=== PATIENT | female | born 1965 | race Caucasian/White ===

== ENCOUNTER 2023-04-15 12:42 | Emergency (ER) | payer MEDICAID ==
[~2023-04-15] VITALS: Ht 132.1 cm; Wt 35.6 kg
[2023-04-15 12:47] VITALS: TEMP 98.1
[2023-04-15 13:13] LABS: URINE HCG NEGATIVE (NEG)
[2023-04-15 13:19] LABS: CLARITY,URINE CLEAR (Clear)
[2023-04-15 13:27] LABS: COLOR,URINE ORANGE (Yellow); UA COLLECTION TYPE CLN CATCH MIDSTREAM
[2023-04-15 13:30] LABS: BACTERIA,URINE 2+ /HPF (Neg); MUCUS STRANDS FEW /LPF (Neg); SQUAMOUS EPITHELIAL CELL,UR MANY /LPF (FEW)
[2023-04-15 13:31] LABS: WBC,URINE 50-100 /HPF (0-4)
[2023-04-15 13:35] LABS: BASOPHILS % (AUTO) 0.5 % (0-1); EOSINOPHILS # (AUTO) 0.2 X10'3 (0-0.9); EOSINOPHILS % (AUTO) 1.8 % (0-6); HEMATOCRIT 42.3 % (35.0-45.0); HEMOGLOBIN 14.3 g/dl (12.0-16.0); LYMPHOCYTES # (AUTO) 1.8 X10'3 (1.1-4.8); LYMPHOCYTES % (AUTO) 20.5 % (21-51); MEAN CORPUSCULAR HGB CONC 33.8 g/dL (33.0-36.5); MEAN CORPUSCULAR VOLUME 94.4 FL (78-98); MEAN PLATELET VOLUME 7.1 FL (7.4-10.4); MONOCYTES % (AUTO) 12.1 % (2-12); NEUTROPHILS # (AUTO) 5.6 X10'3 (1.8-7.7); NEUTROPHILS % (AUTO) 65.1 % (42-75); PLATELET COUNT 395 X10'3 (140-440); RED BLOOD COUNT 4.48 X10'6 (4.20-5.60); RED CELL DISTRIBUTION WIDTH 14.1 % (11.5-14.5); WHITE BLOOD COUNT 8.6 X10'3 (4.5-11.0)
[2023-04-15 13:42] LABS: ALANINE AMINOTRANSFERASE 17 U/L (12-78); ALBUMIN 3.6 G/DL (3.4-5.0); ALBUMIN/GLOBULIN RATIO 0.9 (1.1-1.5); ALKALINE PHOSPHATASE 139 IU/L (46-116); ANION GAP 9 (8-16); ASPARTATE AMINO TRANSFERASE 15 U/L (10-37); BILIRUBIN,TOTAL 0.4 MG/DL (0.1-1.0); BLOOD UREA NITROGEN 5 MG/DL (7-18); BUN/CREATININE RATIO 7.9 (10.0-20.0); CALCIUM 9.9 MG/DL (8.5-10.1); CHLORIDE 93 MMOL/L (99-107); CREATININE 0.63 MG/DL (0.40-0.90); GLUCOSE 116 MG/DL (70-104); LIPASE < 50 U/L (73-393); SODIUM 134 MMOL/L (135-145); TOTAL CARBON DIOXIDE 32.1 MMOL/L (24-32); TOTAL PROTEIN 7.7 G/DL (6.4-8.2); eCRCL 42 ML/MIN; eGFR > 90 ML/MIN
[2023-04-15 16:07] VITALS: BP 153/69; PULSE 109; O2SAT 95
[2023-04-15] MEDS ORDERED: potassium chloride 10mEq ER tablet PO STA (16:49)
[2023-04-15] MEDS ORDERED: CefTRIAXone 1000mg IM Kit (w/lidocaine diluent) IM ONE (16:55)
[2023-04-15] MEDS ORDERED: ketorolac tromethamine 15mg/ml inj. IM ONE (16:55)
[2023-04-15] MEDS ORDERED: CEFD300C3 PO (16:59)
[2023-04-15 17:14] VITALS: RESP 15
[2023-04-15] MEDS ORDERED: CefTRIAXone/D5W-Rocephin 1gm 50 ML IV ONE (17:20)
== END 2023-04-15 18:00 | disposition home or self-care (01) ==
LOC: ER 12:43
DX: N39.0 Urinary tract infection, site not specified (principal); Z88.0 Allergy status to penicillin; Z88.1 Allergy status to other antibiotic agents; Z88.8 Allergy status to other drugs, medicaments and biological substances
CPT/HCPCS: 36415; 80053; 81001; 81025; 83690; 85025; 96365; 96372; 99284; J0696; J1885; J7030

== ENCOUNTER 2024-10-07 11:03 | Inpatient (IN) | payer MEDICAID ==
[~2024-10-07] VITALS: Ht 132.1 cm; Wt 43.0 kg
[2024-10-07] MEDS: levoFLOXACIN-Levaquin 500mg/D5 100 ML IV ONE (12:06)
[2024-10-07 12:09] LABS: BASOPHILS % (AUTO) 0.1 % (0-1); EOSINOPHILS % (AUTO) 0 % (0-6)
[2024-10-07 12:12] LABS: HEMATOCRIT 40.8 % (35.0-45.0); HEMOGLOBIN 13.4 g/dl (12.0-16.0); LYMPHOCYTES % (AUTO) 5.4 % (21-51); MEAN CORPUSCULAR HEMOGLOBIN 31.1 PG (27.0-31.0); MEAN CORPUSCULAR HGB CONC 32.8 g/dL (33.0-36.5); MEAN CORPUSCULAR VOLUME 94.8 FL (78-98); MEAN PLATELET VOLUME 8.1 FL (7.4-10.4); MONOCYTES # (AUTO) 1.3 X10'3 (0-0.9); MONOCYTES % (AUTO) 7.1 % (2-12); NEUTROPHILS # (AUTO) 15.7 X10'3 (1.8-7.7); NEUTROPHILS % (AUTO) 87.4 % (42-75); PLATELET COUNT 342 X10'3 (140-440); RED BLOOD COUNT 4.31 X10'6 (4.20-5.60); RED CELL DISTRIBUTION WIDTH 13.9 % (11.5-14.5)
[2024-10-07 12:52] LABS: ALBUMIN 2.4 G/DL (3.4-5.0); ANION GAP 9 (8-16); BLOOD UREA NITROGEN 8 MG/DL (7-18); BUN/CREATININE RATIO 26.7 (10.0-20.0); CALCIUM 8.6 MG/DL (8.5-10.1); CHLORIDE 88 MMOL/L (99-107); GLUCOSE 129 MG/DL (70-104); MAGNESIUM 2.3 MG/DL (1.5-2.4); PRO BRAIN NATRIURETIC PEPTIDE 534 PG/ML (0-125); SODIUM 131 MMOL/L (135-145); TOTAL CARBON DIOXIDE 33.8 MMOL/L (24-32); eCRCL 85 ML/MIN; eGFR > 90 ML/MIN
[2024-10-07 12:58] LABS: POTASSIUM 3.3 MMOL/L (3.5-5.1)
[2024-10-07] MEDS: vancomycin/NS 1 GM ADD-VANTAGE 250 ML X 1 DOSE IV ONE (13:28)
[2024-10-07] MEDS ORDERED: methylPREDNISolone sod succ 125mg/2ml vial IV ONE (13:35)
[2024-10-07] MEDS: methylPREDNISolone sod succ/PF 40mg inj. IV ONE (13:42)
[2024-10-07] MEDS ORDERED: ALB0.5UD NEB (14:51)
[2024-10-07] MEDS: ipratropium/albuterol 3ml nebule NEB ONE (15:16)
[2024-10-07 15:25] VITALS: PULSE 92; RESP 22; O2SAT 94; O2SAT 97
[2024-10-07] MEDS ORDERED: magnesium hydroxide 30ml (MOM) UD suspension PO PRN (15:55)
[2024-10-07] MEDS ORDERED: magnesium sulf-water 4G/100mL 100 ML IV PRN (15:55)
[2024-10-07] MEDS ORDERED: magnesium sulf-water 2g/50mL 50 ML IV PRN (15:55)
[2024-10-07] MEDS ORDERED: potassium Cl 40MEQ/1/2NS 520ml 520 ML IV PRN (15:55)
[2024-10-07] MEDS ORDERED: morphine 2 MG/ML inj. syringe IV PRN ×2 (15:55)
[2024-10-07] MEDS ORDERED: magnesium Cl slow-release 64mg tablet PO PRN (15:55)
[2024-10-07] MEDS: normal saline 1000ml 1,000 ML IV SCH (16:26)
[2024-10-07] MEDS: methylPREDNISolone sod succ 125mg/2ml vial IV SCH (16:26)
[2024-10-07 18:00] VITALS: BP 149/66; PULSE 105; RESP 14; TEMP 97.1; O2SAT 92
[2024-10-07 18:08] LABS: OSMOLALITY 276 MOSM/K (280-300)
[2024-10-07] MEDS: normal saline 1000ml 1,000 ML IV ONE ×2 (19:35→19:36)
[2024-10-07 20:00] VITALS: RESP 14; O2SAT 92
[2024-10-07] MEDS: K and/or MAG REPLACEMENT MC SCH (20:00)
[2024-10-07] MEDS: docusate sod 100mg capsule PO SCH (20:00)
[2024-10-07] MEDS: heparin, porcine 5000 units/ml vial SQ SCH (20:31)
[2024-10-07] MEDS: potassium Cl 20 mEq SR tablet PO PRN (20:40)
[2024-10-07 22:00] VITALS: BP 147/81; PULSE 89; RESP 19; TEMP 98; O2SAT 98
[2024-10-07] MEDS: mag hydrox/Alum hydrox/simeth 30ml oral suspension PO PRN (23:07)
[2024-10-07] MEDS: ipratropium/albuterol 3ml nebule NEB SCH (23:07)
[2024-10-07 23:31] VITALS: PULSE 103; RESP 18; O2SAT 88
[2024-10-07 23:38] VITALS: PULSE 89; RESP 18
[2024-10-08] VITALS (14 sets, daily range): BP systolic 128–149; BP diastolic 64–87; PULSE 84–107; RESP 16–18; TEMP 97.8–98.8; O2SAT 94–96
[2024-10-08] MEDS: potassium Cl 20 mEq SR tablet PO PRN (01:30)
[2024-10-08 05:53] LABS: BASOPHILS % (AUTO) 0.1 % (0-1); EOSINOPHILS % (AUTO) 0 % (0-6); HEMATOCRIT 33.6 % (35.0-45.0); HEMOGLOBIN 11.2 g/dl (12.0-16.0); LYMPHOCYTES # (AUTO) 0.7 X10'3 (1.1-4.8); LYMPHOCYTES % (AUTO) 5.3 % (21-51); MEAN CORPUSCULAR HEMOGLOBIN 31.6 PG (27.0-31.0); MEAN CORPUSCULAR HGB CONC 33.2 g/dL (33.0-36.5); MEAN CORPUSCULAR VOLUME 95.2 FL (78-98); MEAN PLATELET VOLUME 7.8 FL (7.4-10.4); MONOCYTES # (AUTO) 0.4 X10'3 (0-0.9); NEUTROPHILS # (AUTO) 11.8 X10'3 (1.8-7.7); NEUTROPHILS % (AUTO) 91.6 % (42-75); PLATELET COUNT 378 X10'3 (140-440); RED BLOOD COUNT 3.53 X10'6 (4.20-5.60); WHITE BLOOD COUNT 12.8 X10'3 (4.5-11.0)
[2024-10-08 06:09] LABS: ALANINE AMINOTRANSFERASE 20 U/L (12-78); ALBUMIN 1.7 G/DL (3.4-5.0); ALBUMIN/GLOBULIN RATIO 0.4 (1.1-1.5); ALKALINE PHOSPHATASE 194 IU/L (46-116); ANION GAP 8 (8-16); ASPARTATE AMINO TRANSFERASE 23 U/L (10-37); BILIRUBIN,TOTAL 0.3 MG/DL (0.1-1.0); BLOOD UREA NITROGEN 8 MG/DL (7-18); BUN/CREATININE RATIO 23.5 (10.0-20.0); CALCIUM 7.8 MG/DL (8.5-10.1); CHLORIDE 103 MMOL/L (99-107); CREATININE 0.34 MG/DL (0.40-0.90); GLUCOSE 181 MG/DL (70-104); MAGNESIUM 2.2 MG/DL (1.5-2.4); POTASSIUM 3.8 MMOL/L (3.5-5.1); SODIUM 138 MMOL/L (135-145); TOTAL CARBON DIOXIDE 27.5 MMOL/L (24-32); TOTAL PROTEIN 5.9 G/DL (6.4-8.2); eCRCL 75 ML/MIN; eGFR > 90 ML/MIN
[2024-10-08] MEDS: levoFLOXACIN-Levaquin 750MG/D5 150 ML IV SCH (08:26)
[2024-10-08] MEDS ORDERED: PNEUMOC 20-VAL CONJ-DIP CRM/PF 0.5 ML SYRINGE IMVAC ONE (14:00)
[2024-10-08] MEDS ORDERED: FLU VACC TS2024-25(6MOS UP)/PF 45 MCG/0.5 ML SYRINGE IMVAC ONE (14:00)
[2024-10-08] MEDS ORDERED: pneumococcal 23-VAL P-sac vacc 25 mcg/0.5ml vial IMVAC ONE (14:00)
[2024-10-08] MEDS: guaiFENesin ER 600mg tablet PO SCH (19:16)
[2024-10-09] VITALS (14 sets, daily range): BP systolic 136–151; BP diastolic 65–73; PULSE 86–109; RESP 16–18; TEMP 97.3–98.3; O2SAT 94–98
[2024-10-09 06:41] LABS: BASOPHILS % (AUTO) 0.1 % (0-1); EOSINOPHILS % (AUTO) 0 % (0-6); HEMATOCRIT 37.1 % (35.0-45.0); HEMOGLOBIN 12.2 g/dl (12.0-16.0); LYMPHOCYTES # (AUTO) 0.8 X10'3 (1.1-4.8); LYMPHOCYTES % (AUTO) 4.4 % (21-51); MEAN CORPUSCULAR HEMOGLOBIN 31.2 PG (27.0-31.0); MEAN CORPUSCULAR VOLUME 94.6 FL (78-98); MEAN PLATELET VOLUME 7.5 FL (7.4-10.4); MONOCYTES # (AUTO) 0.7 X10'3 (0-0.9); MONOCYTES % (AUTO) 3.7 % (2-12); NEUTROPHILS # (AUTO) 16.8 X10'3 (1.8-7.7); NEUTROPHILS % (AUTO) 91.8 % (42-75); PLATELET COUNT 503 X10'3 (140-440); RED BLOOD COUNT 3.92 X10'6 (4.20-5.60); WHITE BLOOD COUNT 18.3 X10'3 (4.5-11.0)
[2024-10-09 07:08] LABS: GLUCOSE 168 MG/DL (70-104)
[2024-10-09 07:09] LABS: ALANINE AMINOTRANSFERASE 22 U/L (12-78); ALBUMIN 1.9 G/DL (3.4-5.0); ALBUMIN/GLOBULIN RATIO 0.5 (1.1-1.5); ALKALINE PHOSPHATASE 182 IU/L (46-116); ANION GAP 5 (8-16); ASPARTATE AMINO TRANSFERASE 16 U/L (10-37); BILIRUBIN,TOTAL 0.3 MG/DL (0.1-1.0); BLOOD UREA NITROGEN 7 MG/DL (7-18); BUN/CREATININE RATIO 18.4 (10.0-20.0); CALCIUM 7.9 MG/DL (8.5-10.1); CHLORIDE 101 MMOL/L (99-107); CREATININE 0.38 MG/DL (0.40-0.90); MAGNESIUM 2.2 MG/DL (1.5-2.4); POTASSIUM 3.3 MMOL/L (3.5-5.1); SODIUM 138 MMOL/L (135-145); TOTAL CARBON DIOXIDE 32.1 MMOL/L (24-32); eCRCL 67 ML/MIN; eGFR > 90 ML/MIN
[2024-10-09 07:46] LABS: PLATELET ESTIMATE INCREASED; TOTAL CELLS COUNTED 100
[2024-10-09] MEDS: furosemide 20MG tablet PO SCH (10:03)
[2024-10-09 12:50] LABS: BILIRUBIN,URINE NEGATIVE (Neg); CLARITY,URINE CLEAR (Clear); COLOR,URINE YELLOW (Yellow); GLUCOSE, URINE NEGATIVE (Neg); KETONES,URINE NEGATIVE (Neg); LEUKOCYTE ESTERASE ,URINE NEGATIVE (Neg); NITRITES, URINE NEGATIVE (Neg); OCCULT BLOOD,URINE TRACE-INTACT (Neg); PH,URINE 6.5 (4.8-8.0); PROTEIN,URINE NEGATIVE (Neg); UROBILINOGEN,URINE 0.2 E.U/dL (0.2-1.0)
[2024-10-09] MEDS: acetaminophen 325mg tablet PO PRN (12:50)
[2024-10-09 12:51] LABS: URINE HCG NEGATIVE (NEG)
[2024-10-09 12:55] LABS: UA COLLECTION TYPE VOIDED
[2024-10-09 13:08] LABS: WBC,URINE 0-4 /HPF (0-4)
[2024-10-09 13:09] LABS: BACTERIA,URINE FEW /HPF (Neg); SQUAMOUS EPITHELIAL CELL,UR FEW /LPF (FEW)
[2024-10-09 13:23] LABS: OSMOLALITY UA 264 MOSM/K (50-1400)
[2024-10-09 13:31] LABS: SODIUM,URINE RANDOM 65 MEQ/L
[2024-10-09] MEDS: methylPREDNISolone sod succ/PF 40mg inj. IV SCH (15:05)
[2024-10-10] VITALS (15 sets, daily range): BP systolic 113–140; BP diastolic 52–96; PULSE 98–126; RESP 16–23; TEMP 97.3–98.2; O2SAT 94–98
[2024-10-10 06:08] LABS: EOSINOPHILS % (AUTO) 0 % (0-6); LYMPHOCYTES # (AUTO) 0.6 X10'3 (1.1-4.8); MEAN CORPUSCULAR VOLUME 94.5 FL (78-98); MEAN PLATELET VOLUME 7.4 FL (7.4-10.4); MONOCYTES # (AUTO) 0.5 X10'3 (0-0.9)
[2024-10-10 06:09] LABS: BASOPHILS % (AUTO) 0.1 % (0-1); HEMATOCRIT 38.7 % (35.0-45.0); HEMOGLOBIN 12.8 g/dl (12.0-16.0); LYMPHOCYTES % (AUTO) 4.4 % (21-51); MEAN CORPUSCULAR HEMOGLOBIN 31.3 PG (27.0-31.0); MEAN CORPUSCULAR HGB CONC 33.1 g/dL (33.0-36.5); MONOCYTES % (AUTO) 3.6 % (2-12); NEUTROPHILS # (AUTO) 11.9 X10'3 (1.8-7.7); NEUTROPHILS % (AUTO) 91.9 % (42-75); PLATELET COUNT 593 X10'3 (140-440)
[2024-10-10 06:37] LABS: ALANINE AMINOTRANSFERASE 22 U/L (12-78); ALBUMIN 2.1 G/DL (3.4-5.0); ALBUMIN/GLOBULIN RATIO 0.5 (1.1-1.5); ALKALINE PHOSPHATASE 170 IU/L (46-116); ANION GAP 3 (8-16); ASPARTATE AMINO TRANSFERASE 16 U/L (10-37); BILIRUBIN,TOTAL 0.3 MG/DL (0.1-1.0); BLOOD UREA NITROGEN 10 MG/DL (7-18); BUN/CREATININE RATIO 27.8 (10.0-20.0); CALCIUM 8.1 MG/DL (8.5-10.1); CHLORIDE 99 MMOL/L (99-107); CREATININE 0.36 MG/DL (0.40-0.90); GLUCOSE 176 MG/DL (70-104); MAGNESIUM 1.9 MG/DL (1.5-2.4); POTASSIUM 4.2 MMOL/L (3.5-5.1); SODIUM 134 MMOL/L (135-145); TOTAL PROTEIN 6.1 G/DL (6.4-8.2); eCRCL 71 ML/MIN; eGFR > 90 ML/MIN
[2024-10-10] MEDS: lisinopril 5mg tablet PO SCH (08:44)
[2024-10-10] MEDS: acetaminophen 325mg tablet PO PRN (17:12)
[2024-10-10] MEDS: ondansetron/PF 4mg/2ml inj IV PRN (20:31)
[2024-10-11] VITALS (16 sets, daily range): BP systolic 105–134; BP diastolic 60–91; PULSE 67–135; RESP 15–26; TEMP 97.1–98.6; O2SAT 91–97
[2024-10-11 08:17] LABS: BASOPHILS % (AUTO) 0.2 % (0-1); EOSINOPHILS % (AUTO) 0 % (0-6); HEMOGLOBIN 13.4 g/dl (12.0-16.0); LYMPHOCYTES % (AUTO) 7.2 % (21-51); MEAN CORPUSCULAR HEMOGLOBIN 31.3 PG (27.0-31.0); MEAN CORPUSCULAR HGB CONC 33.3 g/dL (33.0-36.5); MONOCYTES # (AUTO) 0.9 X10'3 (0-0.9)
[2024-10-11 08:18] LABS: HEMATOCRIT 40.3 % (35.0-45.0); MEAN CORPUSCULAR VOLUME 93.8 FL (78-98); MEAN PLATELET VOLUME 7.5 FL (7.4-10.4); MONOCYTES % (AUTO) 6.6 % (2-12); NEUTROPHILS # (AUTO) 11.8 X10'3 (1.8-7.7); PLATELET COUNT 719 X10'3 (140-440); RED CELL DISTRIBUTION WIDTH 14.1 % (11.5-14.5); WHITE BLOOD COUNT 13.8 X10'3 (4.5-11.0)
[2024-10-11 08:28] LABS: ALANINE AMINOTRANSFERASE 22 U/L (12-78); ALBUMIN 2.3 G/DL (3.4-5.0); ALBUMIN/GLOBULIN RATIO 0.6 (1.1-1.5); ALKALINE PHOSPHATASE 159 IU/L (46-116); ANION GAP 7 (8-16); ASPARTATE AMINO TRANSFERASE 29 U/L (10-37); BILIRUBIN,TOTAL 0.4 MG/DL (0.1-1.0); BLOOD UREA NITROGEN 13 MG/DL (7-18); BUN/CREATININE RATIO 18.3 (10.0-20.0); CALCIUM 8.3 MG/DL (8.5-10.1); CHLORIDE 95 MMOL/L (99-107); CREATININE 0.71 MG/DL (0.40-0.90); GLUCOSE 138 MG/DL (70-104); MAGNESIUM 2.4 MG/DL (1.5-2.4); POTASSIUM 3.5 MMOL/L (3.5-5.1); SODIUM 137 MMOL/L (135-145); TOTAL CARBON DIOXIDE 35.1 MMOL/L (24-32); TOTAL PROTEIN 6.2 G/DL (6.4-8.2); eCRCL 36 ML/MIN; eGFR 84 ML/MIN
[2024-10-11] MEDS: levoFLOXACIN 750MG TABLET PO SCH (11:43)
[2024-10-12] VITALS (8 sets, daily range): BP systolic 126; PULSE 92–117; RESP 16–19; O2SAT 93–95
[2024-10-12 05:55] LABS: BASOPHILS % (AUTO) 0.1 % (0-1); EOSINOPHILS % (AUTO) 0 % (0-6); HEMOGLOBIN 12.7 g/dl (12.0-16.0); LYMPHOCYTES # (AUTO) 0.8 X10'3 (1.1-4.8); MONOCYTES # (AUTO) 0.5 X10'3 (0-0.9)
[2024-10-12 05:59] LABS: HEMATOCRIT 37.1 % (35.0-45.0); LYMPHOCYTES % (AUTO) 6.6 % (21-51); MEAN CORPUSCULAR HEMOGLOBIN 32.4 PG (27.0-31.0); MEAN CORPUSCULAR HGB CONC 34.4 g/dL (33.0-36.5); MEAN CORPUSCULAR VOLUME 94.2 FL (78-98); MONOCYTES % (AUTO) 3.6 % (2-12); NEUTROPHILS # (AUTO) 11.2 X10'3 (1.8-7.7); NEUTROPHILS % (AUTO) 89.7 % (42-75); PLATELET COUNT 690 X10'3 (140-440); RED BLOOD COUNT 3.94 X10'6 (4.20-5.60); RED CELL DISTRIBUTION WIDTH 13.9 % (11.5-14.5); WHITE BLOOD COUNT 12.5 X10'3 (4.5-11.0)
[2024-10-12 06:36] LABS: ALANINE AMINOTRANSFERASE 27 U/L (12-78); ALBUMIN 2.4 G/DL (3.4-5.0); ALBUMIN/GLOBULIN RATIO 0.7 (1.1-1.5); ALKALINE PHOSPHATASE 136 IU/L (46-116); ANION GAP 5 (8-16); ASPARTATE AMINO TRANSFERASE 24 U/L (10-37); BILIRUBIN,TOTAL 0.4 MG/DL (0.1-1.0); BLOOD UREA NITROGEN 12 MG/DL (7-18); BUN/CREATININE RATIO 22.2 (10.0-20.0); CALCIUM 8.1 MG/DL (8.5-10.1); CHLORIDE 95 MMOL/L (99-107); CREATININE 0.54 MG/DL (0.40-0.90); GLUCOSE 152 MG/DL (70-104); POTASSIUM 4.6 MMOL/L (3.5-5.1); SODIUM 134 MMOL/L (135-145); TOTAL CARBON DIOXIDE 34.5 MMOL/L (24-32); TOTAL PROTEIN 5.8 G/DL (6.4-8.2); eCRCL 47 ML/MIN; eGFR > 90 ML/MIN
[2024-10-12] MEDS ORDERED: PRED10TA23 PO (10:03)
[2024-10-12] MEDS ORDERED: FURO20TA4 PO (10:03)
[2024-10-12] MEDS ORDERED: GUAI600T45 PO (10:03)
[2024-10-12] MEDS ORDERED: LEVO750T68 PO (10:03)
[2024-10-13] MEDS ORDERED: levoFLOXACIN 750MG TABLET PO SCH (11:00)
== END 2024-10-12 12:00 | disposition home health service (06) | DRG 720 ==
LOC: ER 11:03 → ED HOLD 13:13 → ORTHO 4S 17:55
PROVIDERS: ADMIT Internal Medicine; ATTEND Internal Medicine
DX: A41.9 Sepsis, unspecified organism (principal); J96.01 Acute respiratory failure with hypoxia; J18.0 Bronchopneumonia, unspecified organism; J44.1 Chronic obstructive pulmonary disease with (acute) exacerbation; E87.1 Hypo-osmolality and hyponatremia; Z20.822 Contact with and (suspected) exposure to COVID-19; J43.9 Emphysema, unspecified; I10 Essential (primary) hypertension; G47.30 Sleep apnea, unspecified; G43.909 Migraine, unspecified, not intractable, without status migrainosus; T38.0X5A Adverse effect of glucocorticoids and synthetic analogues, initial encounter; Y92.89 Other specified places as the place of occurrence of the external cause; Z88.1 Allergy status to other antibiotic agents; Z88.0 Allergy status to penicillin; Z88.5 Allergy status to narcotic agent; Z79.899 Other long term (current) drug therapy; Z87.891 Personal history of nicotine dependence
CPT/HCPCS: 36415; 71045; 80048; 80053; 81001; 81025; 83605; 83735; 83880; 83930; 83935; 84145; 84300; 84484; 85007; 85025; 87040; 87081; 87502; 87503; 87811; 93005; 93306; 94640; 94760; 97116; 97161; 97530; 99285; A4620; G0378; J1644; J1956; J2405; J2919; J3370; J7030